=== PATIENT | male | born 1950 | race Hispanic/Latino ===

== ENCOUNTER 2022-01-21 20:03 | Inpatient (IN) | payer MEDICARE ==
[~2022-01-21] VITALS: Ht 177.8 cm; Wt 104.9 kg
[2022-01-21 20:20] LABS: BASOPHILS % (AUTO) 0.7 % (0.0-5.0); EOSINOPHILS % (AUTO) 1.1 % (0.0-8.0); HEMATOCRIT 43.3 % (42-54); LYMPHOCYTES % (AUTO) 34.5 % (21.0-51.0); MEAN CORPUSCULAR HEMOGLOBIN 28.9 pg (27.0-33.0); MEAN CORPUSCULAR VOLUME 87.7 fL (79-99); MONOCYTES % (AUTO) 4.9 % (3.0-13.0); NEUTROPHILS % (AUTO) 58.4 % (40.0-77.0); PLATELET COUNT (AUTO) 164 K/uL (130-400); RED BLOOD CELL COUNT(AUTO) 4.94 MIL/uL (4.50-6.20); RED CELL DISTRIBUTION WIDTH 12.7 % (11.0-15.5); WHITE BLOOD COUNT (AUTO) 8.2 K/uL (4.8-10.8)
[2022-01-21 20:46] LABS: ALBUMIN 3.1 g/dL (3.5-5.0); BILIRUBIN,TOTAL 0.5 mg/dL (0.2-1.0); CREATININE 0.8 mg/dL (0.5-1.5); POTASSIUM 3.6 mmol/L (3.5-5.1); TOTAL PROTEIN, SERUM 7.2 g/dL (6.0-8.3)
[2022-01-21 21:38] LABS: AMPHET/METH SCREEN,URINE NEGATIVE (NEGATIVE); BARBITURATE SCREEN, URINE NEGATIVE (NEGATIVE); BENZODIAZEPINES SCREEN,URINE NEGATIVE (NEGATIVE); CANNABINOID SCREEN,URINE NEGATIVE (NEGATIVE); COCAINE SCREEN,URINE POSITIVE (NEGATIVE); OPIATE SCREEN,URINE NEGATIVE (NEGATIVE); PHENCYCLIDINE SCREEN,URINE NEGATIVE (NEGATIVE)
[2022-01-21 21:46] LABS: ACETAMINOPHEN < 1 mcg/mL (10-29); ALCOHOL, BLOOD 120 mg/dL (0-10); SALICYLATE < 2.8 mg/dL (2.8-20.0)
[2022-01-21] MEDS ORDERED: 0.9%NACL 1000ML 1,000 ML IV SCH (22:00)
[2022-01-21] MEDS ORDERED: PHARMACY COMMUNICATION MISC PRN (22:00)
[2022-01-21] MEDS ORDERED: ACETAMINOPHEN 325 MG TAB PO PRN ×2 (22:00)
[2022-01-21] MEDS ORDERED: CHLORDIAZEPOXIDE HCL 25 MG CAP PO PRN ×2 (22:00)
[2022-01-21] MEDS ORDERED: LORAZEPAM 2 MG/ML 1 ML VIAL IVP PRN ×2 (22:00)
[2022-01-21] MEDS ORDERED: NITROGLYCERIN 0.4 MG SL TAB SL PRN (22:00)
[2022-01-21] MEDS ORDERED: ASPIRIN 325MG TAB PO ONE (22:00)
[2022-01-21] MEDS ORDERED: GLUCAGON 1MG KIT 1 MG ML IM PRN (22:00)
[2022-01-21] MEDS ORDERED: DEXTROSE 50%-WATER 50 ML DISP.SYRIN IV PRN (22:00)
[2022-01-21] MEDS ORDERED: ONDANSETRON 4MG INJ IV PRN (22:00)
[2022-01-21 22:11] LABS: INR 0.96 (0.85-1.15); PROTHROMBIN TIME 10.5 SEC (9.6-11.6)
[2022-01-21 22:13] LABS: PARTIAL THROMBOPLASTIN TIME 28.3 SEC (26.3-35.5)
[2022-01-21 22:15] LABS: HEMOGLOBIN A1C 9.3 % (4.0-6.0)
[2022-01-21] MEDS: INSULIN HUMULIN R 100 UNIT/ML 3ML SQ SCH (22:43)
[2022-01-21] MEDS: THIAMINE HCL 100 MG/ML 2ML VIAL IM SCH (23:01)
[2022-01-21] MEDS: MULTIVITAMIN TABLET PO SCH (23:01)
[2022-01-21] MEDS: ATORVASTATIN 40 MG TABLET PO SCH (23:01)
[2022-01-21] MEDS: FOLIC ACID 1 MG TABLET PO SCH (23:01)
[2022-01-21] MEDS: FAMOTIDINE 20MG TAB PO SCH (23:02)
[2022-01-21] MEDS: ENOXAPARIN SODIUM 100 MG/1 ML SQ SCH (23:02)
[2022-01-22] VITALS (9 sets, daily range): BP systolic 111–135; BP diastolic 60–85
[2022-01-22 01:24] LABS: CREATINE KINASE, TOTAL 124 U/L (21-232); MYOGLOBIN 133 ng/mL (10-92)
[2022-01-22 06:10] LABS: BASOPHILS % (AUTO) 0.9 % (0.0-5.0); EOSINOPHILS % (AUTO) 2.8 % (0.0-8.0); LYMPHOCYTES % (AUTO) 29.9 % (21.0-51.0); MEAN CORPUSCULAR HEMOGLOBIN 29.5 pg (27.0-33.0); MEAN CORPUSCULAR HGB CONC 32.6 g/dL (32.0-36.0); MEAN CORPUSCULAR VOLUME 90.5 fL (79-99); MONOCYTES % (AUTO) 9.4 % (3.0-13.0); NEUTROPHILS % (AUTO) 56.7 % (40.0-77.0); PLATELET COUNT (AUTO) 154 K/uL (130-400); RED BLOOD CELL COUNT(AUTO) 4.64 MIL/uL (4.50-6.20); WHITE BLOOD COUNT (AUTO) 7.6 K/uL (4.8-10.8)
[2022-01-22] MEDS: INSULIN HUMULIN R 100 UNIT/ML 3ML SQ SCH ×4 (06:14→21:59)
[2022-01-22 06:43] LABS: ALBUMIN 2.8 g/dL (3.5-5.0); BILIRUBIN,TOTAL 0.8 mg/dL (0.2-1.0); CREATININE 0.9 mg/dL (0.5-1.5); MAGNESIUM 1.9 mg/dL (1.80-2.40); POTASSIUM 3.7 mmol/L (3.5-5.1); TOTAL PROTEIN, SERUM 6.6 g/dL (6.0-8.3)
[2022-01-22] MEDS ORDERED: ENOXAPARIN SODIUM 40 MG/0.4 ML SYRINGE SQ SCH (09:00)
[2022-01-22] MEDS: FOLIC ACID 1 MG TABLET PO SCH (09:21)
[2022-01-22] MEDS: MULTIVITAMIN TABLET PO SCH (09:22)
[2022-01-22] MEDS: ASPIRIN 81 MG EC TAB PO SCH (09:22)
[2022-01-22] MEDS: THIAMINE HCL 100 MG/ML 2ML VIAL IM SCH (09:22)
[2022-01-22] MEDS: FAMOTIDINE 20MG TAB PO SCH ×2 (09:22→21:52)
[2022-01-22] MEDS: ENOXAPARIN SODIUM 100 MG/1 ML SQ SCH ×2 (09:23→21:52)
[2022-01-22] MEDS ORDERED: REGADENOSON 0.4 MG/5 ML PF SYG IVP SCH (17:30)
[2022-01-22] MEDS: METOPROLOL SUCCINATE 50 MG TAB.SR.24H PO SCH (18:36)
[2022-01-22] MEDS: LOSARTAN 25 MG TABLET PO SCH (18:36)
[2022-01-22] MEDS: ATORVASTATIN 40 MG TABLET PO SCH (21:52)
[2022-01-23 00:51] VITALS: BP 125/66
[2022-01-23 03:33] VITALS: BP 120/70
[2022-01-23] MEDS: INSULIN HUMULIN R 100 UNIT/ML 3ML SQ SCH ×4 (06:35→22:07)
[2022-01-23 08:06] VITALS: BP 148/84
[2022-01-23] MEDS: FOLIC ACID 1 MG TABLET PO SCH (09:00)
[2022-01-23] MEDS: THIAMINE HCL 100 MG/ML 2ML VIAL IM SCH (09:00)
[2022-01-23] MEDS: ASPIRIN 81 MG EC TAB PO SCH (11:34)
[2022-01-23] MEDS: METOPROLOL SUCCINATE 50 MG TAB.SR.24H PO SCH (11:34)
[2022-01-23] MEDS: LOSARTAN 25 MG TABLET PO SCH (11:36)
[2022-01-23] MEDS: MULTIVITAMIN TABLET PO SCH (11:36)
[2022-01-23] MEDS: FAMOTIDINE 20MG TAB PO SCH ×2 (11:37→22:06)
[2022-01-23] MEDS ORDERED: THIAMINE HCL 100 MG TABLET ONE (11:40)
[2022-01-23] MEDS ORDERED: FOLIC ACID 1 MG TABLET ONE (11:40)
[2022-01-23] MEDS: ENOXAPARIN SODIUM 40 MG/0.4 ML SYRINGE SQ SCH (11:41)
[2022-01-23 11:51] VITALS: BP 133/81
[2022-01-23 16:22] VITALS: BP 121/67
[2022-01-23 20:00] VITALS: BP 112/77
[2022-01-23] MEDS: ATORVASTATIN 40 MG TABLET PO SCH (22:06)
[2022-01-24] VITALS: BP 150/82
[2022-01-24 04:00] VITALS: BP 124/70
[2022-01-24] MEDS: INSULIN HUMULIN R 100 UNIT/ML 3ML SQ SCH (06:19)
[2022-01-24 08:00] VITALS: BP 162/97
[2022-01-24] MEDS ORDERED: AEC81 PO (09:06)
[2022-01-24] MEDS ORDERED: METO50TA9 PO (09:06)
[2022-01-24] MEDS ORDERED: MVIT PO (09:06)
[2022-01-24] MEDS ORDERED: ATOR40TA69 PO (09:06)
[2022-01-24] MEDS ORDERED: LOSA25TA2 PO (09:06)
[2022-01-24] MEDS ORDERED: FAMO20TA8 PO (09:06)
[2022-01-24] MEDS: ASPIRIN 81 MG EC TAB PO SCH (09:41)
[2022-01-24] MEDS: MULTIVITAMIN TABLET PO SCH (09:41)
[2022-01-24] MEDS: FAMOTIDINE 20MG TAB PO SCH (09:42)
[2022-01-24] MEDS: METOPROLOL SUCCINATE 50 MG TAB.SR.24H PO SCH (09:42)
[2022-01-24] MEDS: LOSARTAN 25 MG TABLET PO SCH (09:42)
[2022-01-24] MEDS: ENOXAPARIN SODIUM 40 MG/0.4 ML SYRINGE SQ SCH (09:43)
== END 2022-01-24 11:50 | disposition home or self-care (01) | DRG 281 ==
LOC: EDH 20:03 → EDHIP 21:56 → OBSVTOIN 21:56 → 3CH 01-22 00:24
PROVIDERS: ADMIT Internal Medicine; ATTEND Internal Medicine
PROC: 4B02XTZ Measurement of Cardiac Defibrillator, External Approach (ICD-10-PCS; principal; 2022-01-22)
DX: I21.4 Non-ST elevation (NSTEMI) myocardial infarction (principal); E44.0 Moderate protein-calorie malnutrition; F14.90 Cocaine use, unspecified, uncomplicated; I25.5 Ischemic cardiomyopathy; I10 Essential (primary) hypertension; F10.129 Alcohol abuse with intoxication, unspecified; E11.65 Type 2 diabetes mellitus with hyperglycemia; Y90.6 Blood alcohol level of 120-199 mg/100 ml; Z20.822 Contact with and (suspected) exposure to COVID-19; E78.5 Hyperlipidemia, unspecified; F32.A Depression, unspecified; F17.210 Nicotine dependence, cigarettes, uncomplicated; E66.9 Obesity, unspecified; Z68.32 Body mass index [BMI] 32.0-32.9, adult; Z91.19 Patient's noncompliance with other medical treatment and regimen; Z95.810 Presence of automatic (implantable) cardiac defibrillator; Z83.3 Family history of diabetes mellitus; Z80.9 Family history of malignant neoplasm, unspecified; Z82.49 Family history of ischemic heart disease and other diseases of the circulatory system; Z45.02 Encounter for adjustment and management of automatic implantable cardiac defibrillator
CPT/HCPCS: 36415; 71045; 78452; 80053; 80061; 80305; 82550; 82948; 83036; 83735; 83874; 83880; 84484; 85025; 85610; 85730; 87635; 93005; 93017; 93306; 93356; 96374; A9500; G0378; G0481; J1650; J1815; J2785; J3411; J7030

== ENCOUNTER → 2024-02-25 | Outpatient (CLI) | payer OTHER ==
[~2024-02-25] MED LIST: AEC81 PO; ATOR40TA69 PO; FAMO20TA8 PO; LOSA-417 PO; METO50TA9 PO; MVIT PO
== END | disposition home or self-care (01) ==
LOC: SHCH 13:14
PROVIDERS: ATTEND Internal Medicine Cardiovascular Disease
DX: I08.3 Combined rheumatic disorders of mitral, aortic and tricuspid valves (principal); I11.9 Hypertensive heart disease without heart failure; E11.9 Type 2 diabetes mellitus without complications; E78.5 Hyperlipidemia, unspecified; I27.20 Pulmonary hypertension, unspecified; I42.0 Dilated cardiomyopathy; F17.200 Nicotine dependence, unspecified, uncomplicated
CPT/HCPCS: 93306

== ENCOUNTER → 2024-02-27 | Outpatient (CLI) | payer OTHER ==
[2024-02-27] MEDS: REGADENOSON 0.4 MG/5 ML PF SYG IVP ONE (15:07)
== END | disposition home or self-care (01) ==
LOC: SHCH 08:44
PROVIDERS: ATTEND Internal Medicine Cardiovascular Disease
DX: I11.9 Hypertensive heart disease without heart failure (principal); I42.0 Dilated cardiomyopathy; R05.9 Cough, unspecified; I47.20 Ventricular tachycardia, unspecified; R06.00 Dyspnea, unspecified
CPT/HCPCS: 78452; 96374; 93017; J2785; A9500 ×2